=== PATIENT | male | born 2000 | race American Indian/Alaskan Native ===

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

== ENCOUNTER 2024-08-06 00:56 | Emergency (ER) | payer OTHER ==
[~2024-08-06] VITALS: Ht 172.7 cm; Wt 72.0 kg
[~2024-08-06 00:56] MED LIST changes: +NORCO 5-325 TA1 EACH PO
[2024-08-06] MEDS ORDERED: DEXAMETHASONE SOD PHOS 10 MG/ML VIAL IM ONE (01:15)
[2024-08-06] MEDS ORDERED: METHYLPREDNISOLO4 M1 PO (01:17)
[2024-08-06 01:32] VITALS: BP 147/98
== END 2024-08-06 01:32 | disposition home or self-care (01) ==
LOC: ED 00:56
DX: L23.7 Allergic contact dermatitis due to plants, except food (principal)
CPT/HCPCS: 96372; 99282; J1100